=== PATIENT | female | born 1985 | race Caucasian/White ===

== ENCOUNTER → 2018-01-24 | Outpatient (CLI) | payer OTHER ==
[~2018-01-24] MED LIST: MISCCAP80 PO; SPR28 PO
== END | disposition home or self-care (01) ==
LOC: C.PAPS 11:27
PROVIDERS: ATTEND Obstetrics & Gynecology
DX: Z01.419 Encounter for gynecological examination (general) (routine) without abnormal findings (principal)

== ENCOUNTER 2021-01-04 21:11 | Inpatient (IN) ==
[2021-01-04] MEDS ORDERED: LACTATED RINGER'S 1,000 ML IV PRN (21:58)
[2021-01-04] MEDS ORDERED: METHYLERGONOVINE MALEATE 0.2 MG/ML AMP IM PRN (21:58)
[2021-01-04] MEDS ORDERED: OXYTOCIN 30 UNITS/500 ML BAG IV PRN (21:58)
[2021-01-04] MEDS ORDERED: SODIUM CHLORIDE 0.9% INJ 10 ML VIAL ONE (22:13)
[2021-01-04] MEDS ORDERED: BUPIVACAINE 0.25% 30 ML VIAL ONE (22:13)
[2021-01-04] MEDS ORDERED: ePHEDrine sulfate 50 MG/ML AMP ONE (22:13)
[2021-01-04] MEDS ORDERED: fentaNYL 2MCG/ML ROPIVACAINE 1.25MG/ML 100 ML BAG EPI ONE (22:14)
[2021-01-04] MEDS ORDERED: fentaNYL citrate 100 MCG/2 ML VIAL ONE (22:14)
[2021-01-04 22:45] LABS: Hemoglobin 13.8 g/dL (12.0-16.0); Mean Corpuscular Hemoglobin 33.3 pg (25-34); Mean Corpuscular Hgb Conc 36.3 g/dL (32-36); Mean Corpuscular Volume 91.6 fL (80-100); Mean Platelet Volume 10.3 fL (7.4-10.4); Platelet Count 246 K/uL (130-400); RDW Coefficient of Variation 12.4 % (11.5-14.5); RDW Standard Deviation 42.2 fL (36.4-46.3); Red Blood Count 4.15 M/uL (4.2-5.4); White Blood Count 14.55 K/uL (4.8-10.8)
--- NOTE | 2021-01-04 23:37 | Labor Progress Brief Note ---
Date of Service January 04, 2021 Subjective Patient admitted with c/o SROM and ctx. When she first arrived I was in the OR with another patient, and Celi was therefore checked by RN, and found to be ruptured with cervix 5cm dilated. I was called and updated on her exam, and notified that patient would like epidural. Instructions given to admit patient and provide epidural once able (labs, bolus, etc). I came up to L&D and met the patient shortly thereafter, and reviewed her plan in the room with her and the FOB as well as RN Lorie. I then left, planning to re-examine her after she had gotten comfortable with the epidural she was awaiting. Some time thereafter I got a phone call in my call room from Lorie telling me the patient had tested COVID+ and she was extremely upset about this, saying it could not be correct because she had been completely careful and it's not possible she was infected. She was requesting to be re-tested and not placed in the negative pressure room. I asked the nurses to apply the policy as it stands and move the patient to the negative pressure room, but also said I'd come out to speak with the patient. This did take about 10 min because I needed to have an N95 brought to L&D in my size. When I got to the original L&D room where she was still located, the patient and FOB were still both very upset. She is not vaccinated, and he has had only one dose of the mRNA type vaccine, however he notes that he is an infectious disease physician advisor and wants more information about the diagnosis and how it is being reached because it seems improbable. He requested retesting even if they agree to move to a negative pressure room so that they could know "how careful to be with their baby." We discussed that even if we were to re- test her and it came up negative, the correct management of her would continue to be caution / negative pressure suite. We discussed that there are techniques to minimize transmission to the including masking during . A PCR test could be considered more accurate but takes days to result. The FOB did shout at that point, "that's USELESS, you do realize that don't you?" and the patient asked him to calm down. I noted that the more we discussed this outside of a negative pressure room, especially with raised voices, the more we were potentially putting others at risk and I insisted we relocate before continuing the discussion. They agreed and were moved to [facility] with three staff members plus myself helping to carry their belongings. They are currently getting situated in the negative pressure room with their nurse. Dr. Hill of anesthesiology is waiting to place the epidural. I have not yet been able to examine the patient's cervix but the chux on her L&D bed certainly appeared wet c/w ROM, and I note FHT have been Cat 1 when I have been able to see them on the monitor prior to transfer. Assessment & Plan Admission and Anticipated Discharge Date Admission Date: January 04, 2021 Results & Data ([facility]) Vital Signs (Past 12 Hours) Vital Signs Temp Pulse Resp BP 01/04/21 22:17 98.1 F 18 01/04/21 21:35 81 127/79 01/04/21 21:33 98.1 F 18 Coding Level of Care Code None
--- NOTE | 2021-01-05 00:18 | Anesthesiology Consultation ---
Date of Service January 05, 2021 Assessment & Plan Chart Review Chart Review: Acceptable Risk for Labor Epidural Consults Requested none History Height/Weight Height: 5 ft 5 in Weight: 74.389 kg Allergies Allergy/AdvReac Type Severity Reaction Status Date / Time nickel Allergy Verified 01/01/21 10:23 Medications Home Medications Medication Instructions Recorded Confirmed Last Taken levothyroxine 75 mcg capsule 75 mcg PO DAILY 05/13/20 01/04/21 01/03/21 prenat.vits,tahira,zro-zzzp-wvxzc 1 tab PO DAILY 05/13/20 01/04/21 01/03/21 docusate sodium [Colace] 100 mg PO DAILY 01/04/21 01/04/21 01/02/21 Past Medical History Medical History History of chicken pox History of IBS Hypothyroidism Past Family History Family History Grandmother (Maternal) Breast cancer Denies family history of Ovarian cancer Colorectal cancer Past Surgical History Surgical History S/P wisdom tooth extraction Social History Smoking Status: Never smoker Do You Dip or Chew Tobacco: No Hx Alcohol Use: No Hx Substance Use: No substance use type: does not use Physical Exam Vital Signs Last Vital Signs Temp 36.7 C 01/04/21 22:17 Pulse 112 H 01/05/21 00:16 Resp 18 01/04/21 22:17 BP 102/57 L 01/05/21 00:16 Testing Laboratory Results 01/04/21 22:14
[2021-01-05] MEDS ORDERED: fentaNYL 2MCG/ML ROPIVACAINE 1.25MG/ML 100 ML BAG EPI PRN (00:20)
[2021-01-05] MEDS ORDERED: NALOXONE HCL 1 MG in SODIUM CHLORIDE 0.9% 1000ML 1,000 ML IV PRN (00:20)
[2021-01-05] MEDS ORDERED: diphenhydrAMINE 50 MG/ML VIAL IV PRN (00:20)
[2021-01-05] MEDS ORDERED: ePHEDrine sulfate 50 MG/ML AMP IV PRN (00:20)
[2021-01-05] MEDS ORDERED: NALOXONE HCL 0.4 MG/1 ML VIAL/CARP IV PRN (00:20)
--- NOTE | 2021-01-05 05:57 | Labor Progress Brief Note ---
Date of Service January 05, 2021 Subjective Comfortable with epidural Assessment & Plan (1) Normal labor and delivery: Labor down as patient has no urge to push yet and test push was ineffective. (2) COVID-19 affecting puerperium: Admission and Anticipated Discharge Date Admission Date: January 04, 2021 Physical Exam Physical Exam: /0 to +1 with ctx FHT Cat 1 [place] Q2-4 Results & Data ([facility]) Vital Signs (Past 12 Hours) Vital Signs Temp Pulse Resp BP 01/05/21 05:54 103 H 97/58 L 01/05/21 05:38 115 H 119/80 01/05/21 05:23 103 H 116/76 01/05/21 05:09 113 H 114/76 01/05/21 04:54 112 H 105/75 01/05/21 04:39 102 H 112/67 01/05/21 04:30 20 01/05/21 04:25 103 H 122/75 01/05/21 04:09 93 H 119/74 01/05/21 04:00 98.2 F 18 01/05/21 03:53 103 H 118/77 01/05/21 03:39 103 H 121/77 01/05/21 03:30 18 01/05/21 03:25 114 H 137/81 01/05/21 03:09 105 H 120/73 01/05/21 02:53 90 111/75 01/05/21 02:39 86 112/74 01/05/21 02:30 20 01/05/21 02:24 88 116/77 01/05/21 02:09 117 H 128/85 01/05/21 02:00 98.1 F 18 01/05/21 01:55 97 H 104/67 01/05/21 01:40 99 H 102/64 01/05/21 01:30 18 01/05/21 01:24 100 H 102/62 01/05/21 01:09 120 H 97/56 L 01/05/21 01:00 20 01/05/21 00:47 62 102/59 L 01/05/21 00:39 116 H 96/43 L 01/05/21 00:22 108 H 94/51 L 01/05/21 00:20 115 H 97/53 L 01/05/21 00:16 112 H 102/57 L 01/05/21 00:14 113 H 95/53 L 01/05/21 00:10 90 96/51 L 01/05/21 00:07 107 H 93/55 L 01/05/21 00:04 86 98/55 L 01/05/21 00:01 104 H 92/54 L 01/05/21 00:00 98.2 F 18 01/04/21 23:58 99 H 97/57 L 01/04/21 23:55 86 98/67 L 01/04/21 23:53 94 H 95/61 L 01/04/21 23:50 79 98/58 L 01/04/21 23:47 63 112/67 01/04/21 23:44 96 H 114/78 01/04/21 22:17 98.1 F 18 01/04/21 21:35 81 127/79 01/04/21 21:33 98.1 F 18 Coding Level of Care Code None Diagnoses Normal labor and delivery O80 COVID-19 affecting puerperium O98.53; U07.1
--- NOTE | 2021-01-05 08:41 | Delivery Summary ---
Vaginal Delivery Summary Date of Service January 05, 2021 Vaginal Delivery Summary DIAGNOSES: 1. Cruz intrauterine at 40w5d gestation. 2. Spontaneous onset of labor. 3. Group B Streptococcus Neg. 4. COVID+ on admission to Labor and Delivery, asymptomatic PROCEDURE: Spontaneous vaginal delivery and repair of first degree laceration. SURGEON: Genoveva Alexandra MD. ELECTROTYPE FINISHER: None. ESTIMATED BLOOD LOSS: 300 mL. COMPLICATIONS: None. PLACENTA: Spontaneous and intact with a 3-vessel cord. DISPOSITION: Stable to labor and delivery. DESCRIPTION: The patient pushed well and brought the head to in DOA position. The 's head was allowed to deliver with contraction force and no further active pushing, with the perineum protected during this time. The shoulders delivered easily with a maternal pushing effort. There was no nuchal cord. The left shoulder was anterior. The shoulders and body delivered without any difficulty, and the was placed on the maternal abdomen. It was vigorous and moving all extremities, and making respiratory efforts. The cord was doubly clamped by the MD and then cut by the FOB. The placenta delivered spontaneously and was noted to be intact and with a 3VC. The cervix, vagina and perineum were examined and were found to have a first degree perineal laceration that was repaired using 3-0 vicryl in the usual manner. The fundus was firm and lochia minimal immediately after delivery. [facility] Vaginal Delivery Charge Vaginal Delivery Codes: 23293 global code for the antepartum, delivery, and post-
[2021-01-05] MEDS ORDERED: HYDROCORTISONE ACETATE 25 MG SUPP PR PRN (09:03)
[2021-01-05] MEDS ORDERED: oxyCODONE/ACETAMINOPHEN 5mg/325mg TAB PO PRN (09:03)
[2021-01-05] MEDS ORDERED: SUPERCREAM 0.870% 15 GM JAR EXT PRN (09:03)
[2021-01-05] MEDS ORDERED: BENZOCAINE 20% AER SPR 82.5 GM CAN EXT PRN (09:03)
[2021-01-05] MEDS ORDERED: ACETAMINOPHEN 325 MG TAB PO PRN (09:03)
[2021-01-05] MEDS ORDERED: DIPHTHERIA/TETANUS/PERTUSSIS 0.5 ML SYR/VIAL IM ONE (09:03)
[2021-01-05] MEDS ORDERED: LEVOTHYROXINE SODIUM 75 MCG TABLET PO SCH ×2 (09:30→17:00)
--- NOTE | 2021-01-05 12:23 | Anesthesia Procedure Note ---
Date of Service January 05, 2021 Anesthesia Post Epidural Note Vital Signs Vital Signs: Temp Pulse Resp BP Pulse Ox 36.8 C 82 18 109/68 94 01/05/21 11:26 01/05/21 11:28 01/05/21 11:26 01/05/21 11:28 01/05/21 08:32 Pain Intensity Perineal: Pain Intensity: 4 Notes Mental Status: alert / awake / arousable and participated in evaluation Nausea / Vomiting: adequately controlled Pain: adequately controlled Airway Patency, RR, SpO2: stable & adequate BP & HR: stable & adequate Hydration State: stable & adequate Neuraxial Anesthesia: was administered and sensory block is resolving Anesthetic Complications: no major complications apparent Epidural: Removed without complications and With tip intact
[2021-01-05] MEDS ORDERED: Nursing to Pharmacy Communication SCH (17:00)
[2021-01-05] MEDS: IBUPROFEN 600 MG TAB PO PRN (19:50)
[2021-01-05] MEDS: DOCUSATE SODIUM 100 MG CAP PO SCH (20:24)
[2021-01-06] MEDS: IBUPROFEN 600 MG TAB PO PRN ×2 (06:37→19:46)
--- NOTE | 2021-01-06 07:12 | Obstetrical Progress Note ---
Date of Service January 06, 2021 Assessment & Plan (1) Normal labor and delivery: Recovered well. Remains asymptomatic from COVID. Ready for d/c home, instructions reviewed. Subjective Ambulation: ambulating normally Voiding: no voiding problems Passing Gas:: Yes Diet Tolerance:: regular diet Lochia:: Small Feeding Type:: breast feeding Physical Exam Constitutional WD/WN, vitals as above Eyes PERRL, conjunctivae normal, anicteric sclerae Neck normal visual inspection Respiratory normal respiratory effort and able to speak in complete sentences; no respiratory distress and no labored breathing Cardiovascular Rate/Rhythm: regular rate and regular rhythm Extremities: no edema Chest (Breasts) Chest: normal inspection of chest Gastrointestinal (Abdomen) Inspection/Auscultation: abdomen normal to inspection Soft, postgravid Psychiatric A+Ox3, euthymic affect Genitourinary OB Exam Abdomen: + fundal height Fundus: + firm and + relation to umbilicus (fundus just below umbilicus); not tender Results & Data ([facility]) Vital Signs (Past 12 Hours) Vital Signs Temp Pulse Resp BP Pulse Ox 01/06/21 06:25 97.9 F 65 16 106/74 98 01/06/21 01:33 97.9 F 75 16 112/70 97
[2021-01-06 07:34] LABS: Hematocrit (blood only) 35.5 % (37-47); Hemoglobin 12.8 g/dL (12.0-16.0)
[2021-01-06] MEDS ORDERED: Nursing to Pharmacy Communication SCH (08:15)
[2021-01-06] MEDS: LEVOTHYROXINE SODIUM 75 MCG TABLET PO SCH (08:45)
[2021-01-06] MEDS: DOCUSATE SODIUM 100 MG CAP PO SCH ×2 (12:05→19:46)
[2021-01-06] MEDS: PRENATAL VITAMIN 1 TAB PO SCH (12:05)
[2021-01-06] MEDS ORDERED: CALCIUM CARBONATE 500 MG CHEWABLE TAB PO PRN ×2 (14:45→14:49)
[2021-01-07] MEDS: LEVOTHYROXINE SODIUM 75 MCG TABLET PO SCH (06:03)
[2021-01-07] MEDS: DOCUSATE SODIUM 100 MG CAP PO SCH (07:50)
[2021-01-07] MEDS: PRENATAL VITAMIN 1 TAB PO SCH (07:50)
--- NOTE | 2021-01-07 08:21 | Obstetrical Progress Note ---
Date of Service January 07, 2021 Assessment & Plan (1) COVID-19 affecting puerperium: (2) Normal labor and delivery: Doing well. Stable for discharge (3) Supervision of normal first : Subjective Ambulation: ambulating normally Voiding: no voiding problems Diet Tolerance:: regular diet Lochia:: Moderate Feeding Type:: breast feeding Physical Exam Constitutional WD/WN, vitals as above Respiratory normal respiratory effort; no respiratory distress and no labored breathing Gastrointestinal (Abdomen) Inspection/Auscultation: abdomen normal to inspection; abdomen not distended Percussion/Palpation: abdomen soft; abdomen nontender, no guarding and abdomen not rigid Genitourinary OB Exam Abdomen: + fundal height Fundus: + firm and + relation to umbilicus (Below); not tender and not boggy Results & Data ([facility]) Vital Signs (Past 12 Hours) Vital Signs Temp Pulse Pulse Resp BP BP Pulse Ox 01/07/21 08:09 36.7 C 65 18 109/73 98 01/07/21 07:50 36.7 C 65 18 109/73 98 01/06/21 23:26 36.4 C L 62 18 95/63 L 96
== END 2021-01-07 14:20 | disposition home or self-care (01) | DRG 805 ==
LOC: OPB 21:11 → 4S1 21:13 → 4W 01-05 00:19 → 3N 01-05 14:11